=== PATIENT | female | born 1970 | race Caucasian/White ===

== ENCOUNTER 2018-01-07 16:07 | Emergency (ER) | payer SELFPAY ==
[2018-01-07] VITALS (9 sets, daily range): BP systolic 107–149; BP diastolic 66–97; PULSE 63–76; RESP 15–27; TEMP 37.1; O2SAT 97–100; BMI 49.4
--- NOTE | 2018-01-07 16:23 | ED_ITS ---
HPI - Chest Pain General Chief Complaint: Chest Pain Stated Complaint: pressure around chest,stabbing pains in back Time Seen by Provider: 01/07/18 16:20 Source: patient Mode of arrival: ambulatory Limitations: no limitations History of Present Illness HPI narrative: 47-year-old female who presents the emergency department with right back pain. States that has been going on for the past day or so. She states that she feels like the pain compresses her when at spikes. No chest pain. No shortness of breath. No fevers. Has not tried anything for prior to arrival Related Data Allergies Allergy/AdvReac Type Severity Reaction Status Date / Time No Known Drug Allergies Allergy Verified 01/07/18 16:12 Review of Systems Constitutional Denies fever(s) and Denies headache(s) ENT Ears, Nose, Mouth, and Throat: Denies vertigo, Denies dizziness and Denies headache(s) Cardiovascular Denies chest pain, Denies diaphoresis, Denies syncope, Denies palpitations and Reports dyspnea Respiratory Denies cough and Reports dyspnea Gastrointestinal Gastrointestinal: Denies abdominal pain, Denies change in stool character, Denies dyspepsia, Denies nausea and Denies vomiting Genitourinary Denies difficulty voiding and Denies dysuria Musculoskeletal Reports back pain, Reports myalgias, Denies arthralgias and Denies joint swelling Integumentary/Breasts Denies lesions and Denies rash Neurologic Denies vertigo, Denies dizziness, Denies syncope and Denies headache(s) Endocrine Denies palpitations Hematologic/Lymphatic Denies easy bleeding and Denies easy bruising [facility] Medical History Healthy adult (Acute) Surgical History No pertinent past surgical history (Acute) Exam Initial Vital Signs Initial Vital Signs: Vital Signs Temperature 98.7 F 01/07/18 16:13 Pulse Rate 66 01/07/18 16:13 Respiratory Rate 16 01/07/18 16:13 Blood Pressure 125/67 H 01/07/18 16:13 Pulse Oximetry 100 01/07/18 16:13 Const General: cooperative, healthy appearing, comfortable, well developed, well groomed and No acute distress Orientation: alert, awake and oriented x3 HENMT Head: normal to inspection and normocephalic Resp Effort & Inspection: normal respiratory effort Auscultation: clear to auscultation bilaterally Cardio Rate: regular rate Rhythm: regular rhythm Heart Sounds: no murmurs GI Inspection: normal to inspection and non-distended Palpation: No soft, No firm, No guarding, No tender and No ascites General: No CVA tenderness Back/Spine/Pelvis Back: back tenderness (Midline to medial aspect of right scapula.), No crepitance and No CVA tenderness Skin Lesions: no lesions Rashes: no rashes Neuro General: alert, awake and oriented x3 Cognition: normal cognition Speech: speech normal Gait: normal gait Extrem General: normal to inspection, full ROM and capillary refill normal Psych Appearance: grossly normal and well kempt Course Orders Ordered: ED Orders 01/07/18 16:24 XR chest 1V Stat EKG-12 Lead Stat 01/07/18 17:20 US abdomen complete Stat 01/07/18 18:01 Complete Blood Count AUTO DIFF Stat Comprehensive Metabolic Panel Stat Lipase Stat Sodium Chloride (Normal Saline 0.9%) 1,000 mls @ 125 mls/hr IV CONT COLE Last Admin: 01/07/18 19:50 Dose: 125 mls/hr Discontinued Medications Hydromorphone HCl (Dilaudid) 1 mg IV NOW ONE Stop: 01/07/18 18:54 Last Admin: 01/07/18 19:29 Dose: 1 mg Ondansetron HCl (Zofran) 4 mg IV NOW ONE Stop: 01/07/18 18:54 Last Admin: 01/07/18 19:29 Dose: 4 mg Vital Signs - 8 hr 01/07/18 16:13 01/07/18 16:39 01/07/18 17:09 Temperature 98.7 F Pulse Rate 66 73 63 Respiratory Rate 16 23 21 Blood Pressure 125/67 H Blood Pressure [Left Arm] 139/80 H 148/81 H Pulse Oximetry 100 100 98 01/07/18 17:45 01/07/18 18:30 01/07/18 19:06 Temperature Pulse Rate 66 67 64 Respiratory Rate 24 21 19 Blood Pressure Blood Pressure [Left Arm] 149/87 H 149/97 H 140/83 H Pulse Oximetry 100 97 99 01/07/18 19:32 Temperature Pulse Rate 76 Respiratory Rate 27 H Blood Pressure Blood Pressure [Left Arm] 138/75 H Pulse Oximetry 100 MDM - Chest Pain Lab Data Attestation: I reviewed the patient's lab results. Result diagrams: 01/07/18 18:01 01/07/18 18:01 Lab Results 01/07/18 01/07/18 Range/Units 18:01 18:01 WBC 8.2 (4.5-11.0) X10^3/uL RBC 4.90 (4.0-5.2) X10^6/uL Hgb 15.5 (12.0-16.0) g/dL Hct 44.2 (36-46) % MCV 90.1 (80-100) fL MCH 31.5 (26-34) PG MCHC 35.0 (30-36) % RDW 14.1 (11.6-14.8) % Plt Count 336 (150-400) X10^3/uL Neut % (Auto) 67.4 (50-75) % Lymph % (Auto) 23.4 L (25-40) % [place] % (Auto) 7.8 (3-14) % Eos % (Auto) 0.5 L (2-4) % Baso % (Auto) 0.9 (0-2) % Neut # (Auto) 5500 (9095-9758) /uL Sodium 137 (137-145) mmol/L Potassium 3.8 (3.4-5.1) mmol/L Chloride 95 L (98-107) mmol/L Carbon Dioxide 29 (22-32) mmol/L BUN 7 (7-17) mg/dL Creatinine 0.60 (0.52-1.04) mg/dL Estimated GFR > 60.0 (>60) mL/min BUN/Creatinine Ratio 11.7 (6-22) Glucose 142 H (70-100) mg/dL Calcium 8.9 (8.4-10.2) mg/dL Total Bilirubin 1.8 H (0.2-1.3) mg/dL AST 273 H (14-36) IU/L ALT 438 H (9-52) IU/L Alkaline Phosphatase 208 H (38-126) U/L Total Protein 6.8 (6.3-8.2) g/dL Albumin 4.4 (3.5-5.0) g/dL Globulin 2.4 (1.7-4.1) g/dL Albumin/Globulin Ratio 1.8 (1.0-2.8) Lipase 30 (23-300) U/L Imaging Data Chest x-ray: Radiologist's impression: PROCEDURE: XR CHEST 1V INDICATIONS: chest pain TECHNIQUE: One view of the chest was acquired. COMPARISON: None. FINDINGS: Surgical changes and devices: None. Lungs and pleura: No pleural effusions or pneumothorax. Lungs are clear. Mediastinum: Mediastinal contours appear normal. Heart size is normal. Bones and chest wall: No suspicious bony lesions. Overlying soft tissues appear unremarkable. IMPRESSION: Reduced inspiration, lordotic positioning. When these factors are taken into account no definite acute disease is found. Source of chest pain is not seen. Dictated by: Doug Atkins M.D. on 01/07/2018 at 16:43 Approved by: Dogu Atkins M.D. on 01/07/2018 at 16:45 US - abdomen: Radiologist's impression: [place] [address] Ultrasound Report Signed Patient: david mckeon [facility]#: [id number] : 1970Acct:[id number] Age/Sex: 47 / FDate of Service: 01/07/18 Loc: ED Accession Number: [id number] Procedure: US abdomen complete Ordering Provider: Barry Cerda D.O. PROCEDURE: US ABDOMEN COMPLETE INDICATIONS: hx of GB stones concern for cholecystitis TECHNIQUE: Real-time scanning was performed of the abdominal and retroperitoneal organs, with image documentation. COMPARISON: None. FINDINGS: Liver: Liver is normal in size and homogeneous in echotexture. Liver has a diffusely increased echotexture which typically represents fatty infiltration; however, finding is nonspecific and other etiologies including hepatic cirrhosis can have a similar appearance. Please correlate with clinical and laboratory findings. Gallbladder: 1.1 cm diameter gallstone within the gallbladder neck. Gallbladder wall is slightly thickened measuring 4 L. No pericholecystic fluid. No sonographic Webber sign. Biliary ducts: Intrahepatic bile ducts are non-dilated. Extrahepatic bile duct caliber measures 13 mm. Normal is 6-7 mm or less in diameter, or 10 mm or less post-cholecystectomy. Pancreas: Visualized portions of the pancreas are sonographically normal. Tail of pancreas is not visualized and cannot be evaluated. Spleen: Spleen is normal in size and homogeneous in echotexture. Kidneys: Kidneys are normal in size and echotexture. Right kidney measures 11.3 cm long. Left kidney is obscured by bowel gas and cannot be evaluated. No right- sided hydronephrosis or nephrolithiasis. No right renal solid masses. Aorta: Not visualized due to bowel gas and cannot be evaluated. Iliacs: Not visualized due to bowel gas and cannot be evaluated. IVC: Not visualized due to bowel gas and cannot be evaluated. Miscellaneous: No free abdominal fluid. IMPRESSION: 1. Cholelithiasis with slight gallbladder wall thickening. Early cholecystitis cannot be excluded. 2. Dilated common bile duct measuring 13 mm suggestive of bili obstruction. Recommend correlation with laboratory data. 3. Echogenic liver. Finding typically represents fatty infiltration; however, finding is nonspecific and correlation with clinical and laboratory findings is recommended to exclude other etiologies including hepatic cirrhosis. Dictated by: Sofía Lange MD, PhD on 01/07/2018 at 18:05 Approved by: Sofía Lange MD, PhD on 01/07/2018 at 18:07 ECG Data Attestation: I personally reviewed and interpreted this ECG as follows: Prior ECG tracings: not available for review Interpretation: Sinus rhythm with sinus arrhythmia Ventricular rate is 65 Normal axis Normal QRS Normal QTC Nonspecific ST T wave changes MDM Narrative Medical decision making narrative: Patient with reproducible back pain. When I went in to discuss this with her patient states that this was the same pain that she has had in the past when she was told that she had gallbladder stones. Upon reexamination patient continued to not have abdominal pain. She was concerned that she has gallbladder pathology. At that time a right upper quadrant ultrasound was ordered and patient states that during the ultrasound she had significant right upper quadrant pain. LFTs also elevated. Has a dilated common bile duct which concern for choledocholithiasis noticed on the ultrasound. Chest x-ray is unremarkable. EKG is unremarkable. Patient does not have an elevated white blood cell count. Given the concern for a common bile duct stone patient is most likely a need for ERCP/MRCP. We are unable to perform these procedures here at this hospital. Discussed the case with Dr. simmons at [facility] who accepts the patient in transfer. Discussed the transfer with the patient and the family. They expressed understanding and agreement plan. Discharge Plan Departure Patient Disposition: [facility] Clinical Impression: Choledocholithiasis
--- NOTE | 2018-01-07 16:35 | PC.NURSE ---
Pt denies CP at this time. States her pain is all in her back. Mostly on the right side. Pain increased with palpation to 10/10 pain from 7/10 pain. HRR, VSS, Lungs clear throughout. Pt is wearing a mask. States she is wearing it due to the smoke in the air. C/O SOB but thinks it is due to her pain. States it started 4 days ago and is just worse today.
--- NOTE | 2018-01-07 17:20 | DI.US.S_ITS ---
PROCEDURE: US ABDOMEN COMPLETE INDICATIONS: hx of GB stones concern for cholecystitis TECHNIQUE: Real-time scanning was performed of the abdominal and retroperitoneal organs, with image documentation. COMPARISON: None. FINDINGS: Liver: Liver is normal in size and homogeneous in echotexture. Liver has a diffusely increased echotexture which typically represents fatty infiltration; however, finding is nonspecific and other etiologies including hepatic cirrhosis can have a similar appearance. Please correlate with clinical and laboratory findings. Gallbladder: 1.1 cm diameter gallstone within the gallbladder neck. Gallbladder wall is slightly thickened measuring 4 L. No pericholecystic fluid. No sonographic Webber sign. Biliary ducts: Intrahepatic bile ducts are non-dilated. Extrahepatic bile duct caliber measures 13 mm. Normal is 6-7 mm or less in diameter, or 10 mm or less post-cholecystectomy. Pancreas: Visualized portions of the pancreas are sonographically normal. Tail of pancreas is not visualized and cannot be evaluated. Spleen: Spleen is normal in size and homogeneous in echotexture. Kidneys: Kidneys are normal in size and echotexture. Right kidney measures 11.3 cm long. Left kidney is obscured by bowel gas and cannot be evaluated. No right-sided hydronephrosis or nephrolithiasis. No right renal solid masses. Aorta: Not visualized due to bowel gas and cannot be evaluated. Iliacs: Not visualized due to bowel gas and cannot be evaluated. IVC: Not visualized due to bowel gas and cannot be evaluated. Miscellaneous: No free abdominal fluid. IMPRESSION: 1. Cholelithiasis with slight gallbladder wall thickening. Early cholecystitis cannot be excluded. 2. Dilated common bile duct measuring 13 mm suggestive of bili obstruction. Recommend correlation with laboratory data. 3. Echogenic liver. Finding typically represents fatty infiltration; however, finding is nonspecific and correlation with clinical and laboratory findings is recommended to exclude other etiologies including hepatic cirrhosis. Dictated by: Sofía Lange MD, PhD on 01/07/2018 at 18:05 Approved by: Sofía Lange MD, PhD on 01/07/2018 at 18:07
[2018-01-07 18:31] LABS: Add Manual Diff / Slide Review NO; Basophils Percent Auto 0.9 % (0-2); Eosinophils Percent Auto 0.5 % (2-4); Hematocrit 44.2 % (36-46); Hemoglobin 15.5 g/dL (12.0-16.0); Lymphocytes Percent Auto 23.4 % (25-40); Mean Corpuscular Hemoglobin 31.5 PG (26-34); Mean Corpuscular Volume 90.1 fL (80-100); Monocytes Percent Auto 7.8 % (3-14); Neutrophils Absolute Auto 5500 /uL (3000-5900); Neutrophils Percent Auto 67.4 % (50-75); Platelet Count 336 X10^3/uL (150-400); Red Cell Distribution Width 14.1 % (11.6-14.8); White Blood Cell Count 8.2 X10^3/uL (4.5-11.0)
[2018-01-07 18:39] LABS: Alanine Aminotransferase 438 IU/L (9-52); Albumin 4.4 g/dL (3.5-5.0); Albumin Globulin Ratio 1.8 (1.0-2.8); Alkaline Phosphatase 208 U/L (38-126); Aspartate Aminotransferase 273 IU/L (14-36); BUN Creatinine Ratio 11.7 (6-22); Bilirubin Total 1.8 mg/dL (0.2-1.3); Blood Urea Nitrogen 7 mg/dL (7-17); Calcium 8.9 mg/dL (8.4-10.2); Carbon Dioxide 29 mmol/L (22-32); Chloride 95 mmol/L (98-107); Estimated Glomerular Filt Rate > 60.0 mL/min (>60); Globulin 2.4 g/dL (1.7-4.1); Glucose 142 mg/dL (70-100); HEMOLYSIS < 15 (0-50); Lipase 30 U/L (23-300); Potassium 3.8 mmol/L (3.4-5.1); Sodium 137 mmol/L (137-145); Total Protein 6.8 g/dL (6.3-8.2)
[2018-01-07] MEDS: ONDANSETRON 4 MG/2 ML INJ IV (19:29)
[2018-01-07] MEDS: HYDROMORPHONE 0.5 MG INJ 1 MG IV (19:29)
[2018-01-07] MEDS: SODIUM CHLORIDE 0.9% 1,000 ML 125 ML IV (19:50)
--- NOTE | 2018-01-30 20:55 | PC.NURSE ---
Late entry: January 07, 2018 Patient transferred with Normal Saline infusing. Completed 240 mLs while in emergency department. Normal Saline still infusing at time of transfer at 2138.
== END 2018-01-07 21:38 | disposition short-term general hospital (02) ==
PROVIDERS: Emergency Provider Emergency Medicine
DX: K80.50 Calculus of bile duct without cholangitis or cholecystitis without obstruction (principal)
CPT/HCPCS: 36591; 71045; 76700; 80053; 83690; 85025; 93005; 93010; 96361; 96374; 96375; 99283; 99285; J1170; J2405

== ENCOUNTER 2022-11-15 10:54 | Emergency (ER) | payer OTHER, MEDICAID, SELFPAY ==
[2022-11-15 10:58] VITALS: BP 130/61; PULSE 87; RESP 14; TEMP 37.2; O2SAT 96; BMI 32.1
--- NOTE | 2022-11-15 12:40 | ED_ITS ---
HPI - Ear Problem General Chief complaint: Ear Stated complaint: ear ache Time Seen by Provider: 11/15/22 12:24 Source: patient Mode of arrival: Family Vehicle History of Present Illness HPI Narrative: Patient is a healthy 52-year-old female who presents today with left ear pain and discomfort. She reports that she would a fever last night. She has been on ofloxacin otic drops for an otitis externa. She says she has had decreased hea ring develop fever last night and got concerned. She actually supposed to have an appointment with ENT but due to a billing issue unable to be seen. She is having intense pain in the left ear. No other sore throat cough congestion or other symptoms. Related Data Allergies Allergy/AdvReac Type Severity Reaction Status Date / Time No Known Drug Allergies Allergy Verified 11/15/22 11:06 Review of Systems Review of Systems ROS Unobtainable: All systems reviewed & are unremarkable except as noted in HPI and below Patient History Medical History (Updated 11/15/22 @ 12:43 by Candice Corral DO) Healthy adult Surgical History No pertinent past surgical history Social History Smoking Status: Never smoker Smoking Status: Never smoker alcohol intake frequency: holidays/special occasions only Substance Use Type: does not use Exam Initial Vital Signs Initial Vital Signs: Vital Signs Temperature 99.0 F 11/15/22 10:58 Pulse Rate 87 11/15/22 10:58 Respiratory Rate 14 11/15/22 10:58 Blood Pressure 130/61 11/15/22 10:58 Pulse Oximetry 96 11/15/22 10:58 Oxygen Delivery Method Room Air 11/15/22 10:58 GENERAL: Well-appearing, well-nourished and in no acute distress. EAR: Right ear is within normal limits no erythema no drainage no external pain or swelling Left ear normal external ear canal is impacted with white like substance, substance is removed tympanic membrane is seen and there is no erythema no fluid behind the membrane CARDIOVASCULAR: peripheral pulses in tact, cap refill <2 sec RESPIRATORY: No respiratory distress, speaks in full sentences without difficulty EXTREMITIES: Normal range of motion, no clubbing or edema. Neurovascularly intact NEUROLOGICAL: Cranial nerves II through XII grossly intact. Normal gait and speech. SKIN: Warm, dry, no petechiae, no rashes or lesions. Procedures Ear Wax Removal Left Ear: Results: Re-examined: some cerumen remains TM Examination: TM(s) intact, normal appearance Ear Canal Exam: bleeding Noted Patient Tolerated Procedure: Well and No complications Technique: ear canal curetted Course Vital Signs Vital signs: Vital Signs - 8 hr 11/15/22 10:58 Temperature 99.0 F Pulse Rate 87 Respiratory Rate 14 Blood Pressure 130/61 Pulse Oximetry 96 Oxygen Delivery Method Room Air Medical Decision Making MDM Narrative Medical decision making narrative: 52-year-old female with ongoing left ear pain for about 2 weeks fever last night. With worsening left ear pain. Significant impaction found cerumen was easily removed with curette. No evidence of infection. She is afebrile here. I see no need for further antibiotics otitis externa or otitis media. Fever last night maybe viral. She had instant relief in his feeling better after removal. At this time continue to monitor. Discharge Plan Departure Patient Disposition: Home Clinical Impression: Impacted cerumen Instructions: Cerumen Impaction Activity Restrictions/Additional Instructions: *You have been diagnosed with cerumen impaction left ear *What to do: I am glad that you feel better. Please continue to monitor this time no need for antibiotics. You may have virus. *Continue to take medications as directed *Follow up with your primary care provider in 2-3 days or call [phone] *Return to ER if you should have persistent fever worsening pain shortness of breath cough or any new, worsening or concerning symptoms Referrals: Scarlet Rasheed PA-C [Primary Care Provider] - Stand Alone Forms: Patient Portal/API
--- NOTE | 2022-11-15 13:07 | PC.NURSE ---
Ear wax removal from left ear by Dr. Corral.
== END 2022-11-15 13:15 | disposition home or self-care (01) ==
PROVIDERS: Emergency Provider Emergency Medicine; PCP Physician Assistant
DX: H61.22 Impacted cerumen, left ear (principal)
CPT/HCPCS: 99281